=== PATIENT | male | born 1970 | race African-American/Black ===

== ENCOUNTER 2016-12-09 13:04 | Emergency (ER) | payer OTHER ==
[~2016-12-09] VITALS: Ht 185.4 cm; Wt 97.9 kg
[2016-12-09 13:11] VITALS: BP 130/77
[2016-12-09 14:12] LABS: MCH 29.5 PG (29.0-34.0); MCHC 33.9 G/DL (30.0-36.0); MEAN PLAT.VOLUME 9.4 uM^3 (9.0-12.4); PLATELET COUNT 222 K/uL (156-360); RBC DIS.WIDTH-CV 13.2 % (11.8-14.6); RED BLOOD COUNT 4.71 M/uL (4.00-5.50); WHITE BLOOD COUNT 8.9 K/uL (4.1-10.2)
[2016-12-09 14:26] LABS: CHLORIDE 105 mEq/L (99-109); POTASSIUM 3.6 mEq/L (3.7-5.4); SODIUM 140 mEq/L (136-147)
[2016-12-09 14:29] LABS: GLUCOSE 98 mg/dL (70-99)
[2016-12-09 14:30] LABS: ANION GAP 7 MEQ/L (2-14)
[2016-12-09 14:31] LABS: TOTAL BILIRUBIN 0.9 mg/dL (0.0-1.0)
[2016-12-09 14:32] LABS: ALKALINE PHOSPHATASE 71 IU/L (3-129); GFR ESTIMATE (CALCULATED) > 59 mL/min/
[2016-12-09 14:33] LABS: UREA NITROGEN (BUN) 15 mg/dL (9-23)
== END 2016-12-09 15:11 | disposition home or self-care (01) ==
LOC: EME 13:04
PROVIDERS: Emergency Medicine
DX: G62.9 Polyneuropathy, unspecified (principal); M50.323 Other cervical disc degeneration at C6-C7 level
CPT/HCPCS: 70450; 72125; 80053; 85027; 93005; 99281; 99285

== ENCOUNTER 2017-02-17 10:45 | Emergency (ER) | payer OTHER ==
[~2017-02-17] VITALS: Ht 185.4 cm; Wt 100.4 kg
[2017-02-17] MEDS ORDERED: SUBOXONE 8 MG-1 EAC2 SL (11:58)
[2017-02-17] MEDS ORDERED: PREDNISONE10 MG PO (13:17)
[2017-02-17] MEDS ORDERED: ULTRAM50 MG PO (13:17)
[2017-02-17 13:29] VITALS: BP 130/82
== END 2017-02-17 13:30 | disposition home or self-care (01) ==
LOC: EME 10:45
DX: M54.16 Radiculopathy, lumbar region (principal); I10 Essential (primary) hypertension; F17.200 Nicotine dependence, unspecified, uncomplicated
CPT/HCPCS: 73502; 99281; 99283

== ENCOUNTER 2017-02-19 18:19 | Emergency (ER) | payer OTHER ==
[~2017-02-19] VITALS: Ht 185.4 cm; Wt 98.8 kg
[~2017-02-19 18:19] MED LIST: PREDNISONE10 MG PO; SUBOXONE 8 MG-1 EAC2 SL; ULTRAM50 MG PO
[2017-02-19] MEDS ORDERED: FLEXERIL10 MG PO (21:05)
[2017-02-19] MEDS ORDERED: INDOCIN50 MG PO (21:05)
[2017-02-19 21:19] VITALS: BP 136/88
== END 2017-02-19 21:20 | disposition home or self-care (01) ==
LOC: EME 18:19
DX: M54.41 Lumbago with sciatica, right side (principal); F17.200 Nicotine dependence, unspecified, uncomplicated
CPT/HCPCS: 99281; 99284

== ENCOUNTER 2017-02-23 17:56 | Emergency (ER) | payer OTHER ==
[~2017-02-23] VITALS: Ht 177.8 cm; Wt 102.9 kg
[~2017-02-23 17:56] MED LIST changes: +FLEXERIL10 MG PO; +INDOCIN50 MG PO
[2017-02-23 21:17] VITALS: BP 127/80
[2017-02-23] MEDS ORDERED: FLEXERIL10 MG PO (21:24)
[2017-02-23] MEDS ORDERED: TORADOL10 MG PO (21:24)
== END 2017-02-23 21:29 | disposition home or self-care (01) ==
LOC: EME 17:56
DX: G57.01 Lesion of sciatic nerve, right lower limb (principal); M51.36 Other intervertebral disc degeneration, lumbar region; F17.200 Nicotine dependence, unspecified, uncomplicated
CPT/HCPCS: 72100; 73502; 99281; 99283; J1885